=== PATIENT | male | born 1945 | race African-American/Black ===

== ENCOUNTER 2019-11-11 16:48 | Emergency (ER) | payer OTHER ==
[~2019-11-11] VITALS: Ht 180.3 cm; Wt 99.8 kg
[2019-11-11] MEDS ORDERED: TAMSULOSIN HCL0.4 MG PO (17:21)
[2019-11-11] MEDS ORDERED: HYDROXYZINE HCL50 MG PO (17:22)
[2019-11-11] MEDS ORDERED: OMEPRAZOLE 20 M20 M1 PO (17:22)
[2019-11-11] MEDS ORDERED: HYDROCHLOROTHIA25 M2 PO (17:22)
[2019-11-11] MEDS ORDERED: TRAMADOL 50 MG50 MG PO (17:22)
[2019-11-11 17:55] LABS: URINE BILIRUBIN NEGATIVE (Negative); URINE BLOOD 3+ (Negative); URINE CLARITY CLEAR; URINE COLOR YELLOW; URINE GLUCOSE-RANDOM* NEGATIVE (Negative); URINE KETONES NEGATIVE (Negative); URINE NITRITE-REFLEX NEGATIVE (Negative); URINE PROTEIN (DIPSTICK) TRACE (Negative); URINE UROBILINOGEN 0.2 E.U./dl (0.2-1.0)
[2019-11-11 18:00] LABS: URINE LEUKOCYTES-REFLEX 3+ (Negative)
[2019-11-11 18:08] LABS: CASTS None Seen /LPF (None Seen); CRYSTALS None Seen /LPF (None Seen); SQUAMOUS 0-3 Few /LPF (0-3); URINE RBC 3-10 Few /HPF (0-2); URINE WBC-REFLEX >25 Many /HPF (0-5)
[2019-11-11 18:09] LABS: BACTERIA-REFLEX 1-9 Few /HPF (None Seen)
[2019-11-11] MEDS ORDERED: BACTRIM DS TAB1 EACH PO (18:30)
[2019-11-11] MEDS ORDERED: NORCO 5-325 TA1 EAC2 PO (18:30)
[2019-11-11 18:55] VITALS: BP 123/72
== END 2019-11-11 19:03 | disposition home or self-care (01) ==
LOC: ER 16:48
PROVIDERS: Emergency Medicine
DX: N39.0 Urinary tract infection, site not specified (principal); R32 Unspecified urinary incontinence; R10.2 Pelvic and perineal pain; I10 Essential (primary) hypertension; J45.909 Unspecified asthma, uncomplicated; E11.9 Type 2 diabetes mellitus without complications; Z85.46 Personal history of malignant neoplasm of prostate; Z88.1 Allergy status to other antibiotic agents; Z88.0 Allergy status to penicillin; Z79.899 Other long term (current) drug therapy

== ENCOUNTER 2019-11-13 21:16 | Inpatient (IN) | payer OTHER ==
[~2019-11-13] VITALS: Ht 180.3 cm; Wt 98.9 kg
[~2019-11-13 21:16] MED LIST: BACTRIM DS TAB1 EACH PO; HYDROCHLOROTHIA25 M2 PO; HYDROXYZINE HCL50 MG PO; NORCO 5-325 TA1 EAC2 PO; OMEPRAZOLE 20 M20 M1 PO; TAMSULOSIN HCL0.4 MG PO; TRAMADOL 50 MG50 MG PO
[2019-11-13 21:21] VITALS: BP 129/62
[2019-11-13 22:11] LABS: ABSOLUTE NEUTROPHILS 11.4 thou/uL (1.4-8.2); BASOPHILS 0.6 % (0.0-2.0); EOSINOPHILS 2.3 % (0.0-3.0); HEMATOCRIT 32.3 % (42.0-52.0); LYMPHOCYTES 8.4 % (24.0-44.0); MCH 24.7 pg (26.0-34.0); MCV 72.5 fL (80.0-100.0); MONOCYTES 10.2 % (1.0-8.0); PLATELET COUNT 312 thou/uL (150-400); POLYS 78.5 % (36.0-66.0); RBC 4.46 mil/uL (4.50-6.00); RDW 19.2 % (10.5-14.5); WBC 14.5 thou/uL (4.0-11.0)
[2019-11-13 23:21] LABS: URINE BILIRUBIN NEGATIVE (Negative); URINE BLOOD 3+ (Negative); URINE CLARITY SL CLOUDY; URINE COLOR YELLOW; URINE GLUCOSE-RANDOM* NEGATIVE (Negative); URINE KETONES NEGATIVE (Negative); URINE LEUKOCYTES-REFLEX 3+ (Negative); URINE NITRITE-REFLEX NEGATIVE (Negative); URINE PROTEIN (DIPSTICK) 1+ (Negative); URINE SPECIFIC GRAVITY 1.015 (1.005-1.035); URINE UROBILINOGEN 0.2 E.U./dl (0.2-1.0)
[2019-11-13 23:23] LABS: ALBUMIN 2.6 g/dL (3.4-5.0); CALCIUM 8.9 mg/dL (8.5-10.1); CREATININE 1.4 mg/dL (0.7-1.3); POTASSIUM 5.7 mmol/L (3.5-5.1); TOTAL BILIRUBIN 0.5 mg/dL (0.2-1.0); TOTAL PROTEIN 7.8 g/dL (6.4-8.2)
[2019-11-13 23:35] LABS: CASTS None Seen /LPF (None Seen); CRYSTALS None Seen /LPF (None Seen); MUCUS 0-3 Light strn/LPF (None Seen); SQUAMOUS None Seen /LPF (0-3); URINE RBC >20 Many /HPF (0-2); URINE WBC-REFLEX >25 Many /HPF (0-5)
[2019-11-14] MEDS ORDERED: NORVASC 2.5 MG2.5 M1 PO (01:59)
[2019-11-14] MEDS ORDERED: SENOKOT-S TABL1 EACH PO (02:00)
[2019-11-14] MEDS ORDERED: CITRATE OF MAG296 M1 PO (02:01)
[2019-11-14] MEDS ORDERED: FLONASE 0.05%50 MCG NASAL (02:01)
[2019-11-14] MEDS ORDERED: FLUTICASONE-SA1 EAC4 IH (02:03)
[2019-11-14] MEDS ORDERED: METFORMIN HCL500 M3 PO (02:04)
[2019-11-14] MEDS ORDERED: BENAZEPRIL HCL20 MG PO (02:05)
[2019-11-14] MEDS ORDERED: HYDROCHLOROTHIA25 M2 PO (02:05)
[2019-11-14] MEDS ORDERED: MITIGARE0.6 MG PO (02:06)
[2019-11-14 02:08] VITALS: BP 144/83
[2019-11-14 02:15] VITALS: BP 166/83
[2019-11-14 03:44] VITALS: BP 148/82
--- NOTE | 2019-11-14 04:22 | NUR ---
PT TO UNIT AROUND 0345. A&OX4. ORIENTED PT TO UNIT, STAFF AND USE OF CALLIGHT. PT REPORTS PAIN 5/10 IN ABDOMEN, THINKS HE NEEDS TO HAVE A GOOD BOWEL MOVEMENT. FLUIDS AND ANTIBIOTICS STARTED. GAIT IS UNSTEADY WITH TRANSFERS. USING URINAL. HAS SIIFICANT DRIBBLING OF URINE. URINE IS BLOOD TINGED AND FOUL SMELLING. VSS. PT REPORTS HE HAS SLEEP APNEA BUT DOES NOT WEAR A CPAP OR BIPAP. ADMISSION COMPLETED. CURRENTLY SNORING IN BED WITH TV ON, WILL CONTINUE TO MONITOR.
[2019-11-14 05:11] LABS: HEMATOCRIT 34.6 % (42.0-52.0); MCH 23.6 pg (26.0-34.0); MCHC 31.6 g/dL (28.0-37.0); MCV 74.8 fL (80.0-100.0); RBC 4.63 mil/uL (4.50-6.00); RDW 19.3 % (10.5-14.5); WBC 12.2 thou/uL (4.0-11.0)
[2019-11-14 05:18] LABS: CALCIUM 9.2 mg/dL (8.5-10.1); CREATININE 1.3 mg/dL (0.7-1.3); POTASSIUM 5.4 mmol/L (3.5-5.1)
[2019-11-14 07:20] VITALS: BP 123/67
--- NOTE | 2019-11-14 09:15 | NUR ---
ASSESSMENT: CM REVIEWED CHART AND SPOKE WITH PATIENT. PT IS ALERT AND ORIENTED X4. PT WAS ADMITTED FOR COMPLICATED UTI. PT STATES HE LIVES AT HOME WITH HIS IN A HOUSE. PT REPORTS THEY HAVE ABOUT 2 STEPS TO ENTER AND HE HAS A STAIR LIFT INSIDE. PT REPORTS THAT HE USES A FWW FOR AMBULATION. PT REPORTS THAT HE IS CURRENTLY IN SERVICES WITH [facility]. CM CONTACTED [facility] AND CONFIRMED THIS AND FAXED REFERRAL TO THEM AT [phone]. PT IS HOPEFUL HE WILL BE ABLE TO RETURN HOME WITH HH AT DISCHARGE. CM ASKED IF PATIENT HAD BEEN TO A SNF BEFORE AND PT STATES HE WAS UNSURE BUT THOUGHT [facility] HAD ONE HE HAD BEEN TO IN THE PAST. CM WILL CONTINUE TO FOLLOW TO ASSIST NEEDED.
--- NOTE | 2019-11-14 10:59 | NUR ---
Assumed care of pt at 0700. Pt a&ox4. States he feels constipated. Mag citrate and supposity ordered. Pt trying to have a BM. Urinary frequency. IVF and antibiotics infusing. Call light within reach. Fall precautions in place. Will continue to monitor.
--- NOTE | 2019-11-14 16:06 | EKG ---
[facility] [place] [address] ELECTROCARDIOGRAM REPORT Name: TANISHA WILKERSON Room #: 442- ADM IN M.R.#: [id number] Admission: 11/14/19 Attend Phys: Antoine Hwang Discharge: Date of : 49 Report #: [id number] THIS REPORT FOR: cc: Minor Arriola MD, [place] S. MD Couchonnal, Luis F. 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1945 Requested By: David Woods Order Number: [id number] : Jovany Singh Measurements Intervals [place] Rate: 95 P: 49 [place]: 137 QRS: -66 QRSD: 136 T: 43 QT: 372 QTc: 468 Interpretive Statements Sinus rhythm RBBB and LAFB Minimal ST elevation, anterolateral leads Compared to ECG 01/02/1992 09:07:00 Left anterior fascicular block now present Right bundle-branch block now present ST (T wave) deviation now present T-wave abnormality no longer present Electronically Signed On 11-14-2019 16:05:59 CDT by Jovany Singh [email or web address] <ELECTRONICALLY SIGNED> By: Jovany Singh MD 11/14/19 1605 2245 Jovany Singh MD /EPI
[2019-11-14 17:19] VITALS: BP 127/68
[2019-11-14 19:14] VITALS: BP 138/64
--- NOTE | 2019-11-15 03:36 | NUR ---
ASSESSED AT START OF SHIFT. PT A&O4 C/O PAIN 7/1O MANAGED WITH PO TRAMADOL. IV INTACT AND FLUIDS INFUSING. PT UP WITH ASSISTX1 TO THE BSC HAD 2 BM THIS SHIFT. EVENING MEDS GIVEN AND PT WILEY IT WELL. FALL PREC IN PLACE, CALL LIGHT IN REACH WILL CONT TO MONITOR.
[2019-11-15 03:52] VITALS: BP 143/80
[2019-11-15 06:27] LABS: ALBUMIN 2.6 g/dL (3.4-5.0); CALCIUM 8.8 mg/dL (8.5-10.1); CREATININE 1.2 mg/dL (0.7-1.3); MAGNESIUM 2.1 mg/dL (1.8-2.4); PHOSPHORUS 3.4 mg/dL (2.5-4.9); POTASSIUM 5.5 mmol/L (3.5-5.1)
[2019-11-15 08:03] VITALS: BP 133/70
--- NOTE | 2019-11-15 12:46 | NUR ---
ON-GOING ASSESSMENT: CM REVIEWED CHART AND SPOKE WITH ATTENDING. PT STILL ON IV VANC FOR COMPLICATED CYSTITIS. PT IS SLOWLY PROGRESSING TOWARDS DISCHARGE GOALS. CM SPOKE WITH ATTENDING WHO REPORTS PATIENT MAY POSSIBLY DISCHARGE TOMORROW BACK HOME WITH 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 CM CONTACTED [facility] TO NOTIFY THEM OF POSSIBLE DISCHARGE TOMORROW (THEY CAN ACCEPT). CM WILL CONTINUE TO FOLLOW TO ASSIST NEEDED.
[2019-11-15 15:39] VITALS: BP 148/72
--- NOTE | 2019-11-15 17:28 | NUR ---
PT IS AOX4, VSS, NO C/O PAIN AT THIS TIME. PT WORKED WITH PHYSICAL THERAPY TODAY. APPETITE IS ADEQUATE. PT IS DRIBBLING URINE, REPORTS HE HAS TO URINATE ALL THE TIME. PT HAS ON BRIEF. IV PATENT IN RIGHT HAND/SL. PT CALLS APPROPRIATELY. WILL CONTINUE TO MONITOR.
[2019-11-15 19:17] VITALS: BP 138/72
--- NOTE | 2019-11-16 01:10 | NUR ---
ASSESSED AT START OF SHIFT 0. PT C/O OF PAIN IN GROIN AND FREQUENT URINATION. TRAMADOL GIVEN AND PT HAS ON BRIEFS FOR DRIBBLING. IV INTACT AND FLUIDS INFUSING. FALL PREC IN PLACE, CALL LIGHT IN REACH WILL CONT TO MONITOR.
[2019-11-16 04:08] VITALS: BP 152/88
[2019-11-16 05:44] LABS: ALBUMIN 2.7 g/dL (3.4-5.0); CALCIUM 9.2 mg/dL (8.5-10.1); CREATININE 1.2 mg/dL (0.7-1.3); PHOSPHORUS 3.5 mg/dL (2.5-4.9); POTASSIUM 4.8 mmol/L (3.5-5.1)
[2019-11-16 07:58] VITALS: BP 157/95
[2019-11-16] MEDS ORDERED: CEFUROXIME500 MG PO (09:54)
[2019-11-16 10:15] VITALS: BP 152/88
--- NOTE | 2019-11-16 10:51 | NUR ---
PT DISCHARGING TODAY TO HOME WITH [facility] FAXED DC ORDERS/SUMMARY RECEIVED CONFIRMATION AND THEY WILL CALL PT TO SET UP VISITS.
--- NOTE | 2019-11-16 12:21 | NUR ---
PT IS AOX4, VSS, PAIN CONTROLLED WITH ORAL ANALGESIC. PT RECEIVED DC INSTRUCTIONS, VERBALIZED UNDERSTANDING. PT CALLS APPROPRIATELY, IV DC'D. TOOK HOME WITH HOME HEALTH.
== END 2019-11-16 13:22 | disposition home health service (06) | DRG 871 ==
LOC: ER 21:16 → 4S 11-14 01:51 → EROBS 11-14 01:51 → 4S 11-14 02:35
PROVIDERS: Emergency Medicine; Nurse Practitioner Family; ADMIT Hospitalist; ATTEND Hospitalist
DX: A41.9 Sepsis, unspecified organism (principal); E43 Unspecified severe protein-calorie malnutrition; N17.9 Acute kidney failure, unspecified; N30.80 Other cystitis without hematuria; I10 Essential (primary) hypertension; K59.00 Constipation, unspecified; R33.9 Retention of urine, unspecified; G47.00 Insomnia, unspecified; K21.9 Gastro-esophageal reflux disease without esophagitis; J45.909 Unspecified asthma, uncomplicated; E11.9 Type 2 diabetes mellitus without complications; Z85.46 Personal history of malignant neoplasm of prostate; Z88.1 Allergy status to other antibiotic agents; Z88.0 Allergy status to penicillin; Z88.8 Allergy status to other drugs, medicaments and biological substances; Z79.899 Other long term (current) drug therapy; Z68.30 Body mass index [BMI] 30.0-30.9, adult
CPT/HCPCS: 10195

== ENCOUNTER 2020-01-25 17:46 | Emergency (ER) | payer OTHER ==
[~2020-01-25] VITALS: Ht 182.9 cm; Wt 99.8 kg
[~2020-01-25 17:46] MED LIST changes: +BENAZEPRIL HCL20 MG PO; +CEFUROXIME500 MG PO; +CITRATE OF MAG296 M1 PO; +FLONASE 0.05%50 MCG NASAL; +FLUTICASONE-SA1 EAC4 IH; +METFORMIN HCL500 M3 PO; +MITIGARE0.6 MG PO; +NORVASC 2.5 MG2.5 M1 PO; +SENOKOT-S TABL1 EACH PO
[2020-01-25 19:00] LABS: ABSOLUTE NEUTROPHILS 8.2 thou/uL (1.4-8.2); BASOPHILS 0.5 % (0.0-2.0); EOSINOPHILS 0.7 % (0.0-3.0); HEMATOCRIT 28.1 % (42.0-52.0); LYMPHOCYTES 9.2 % (24.0-44.0); MCH 22.2 pg (26.0-34.0); MCHC 31.9 g/dL (28.0-37.0); MCV 69.6 fL (80.0-100.0); MONOCYTES 7.5 % (1.0-8.0); PLATELET COUNT 422 thou/uL (150-400); POLYS 82.1 % (36.0-66.0); RBC 4.04 mil/uL (4.50-6.00); RDW 19.7 % (10.5-14.5)
[2020-01-25 19:10] LABS: ANION GAP 11 mmol/L (7-16); BUN 21 mg/dL (7-18); CALCIUM 9.4 mg/dL (8.5-10.1); CHLORIDE 97 mmol/L (98-107); CO2 25 mmol/L (21-32); CREATININE 1.4 mg/dL (0.7-1.3); GLUCOSE 106 mg/dL (74-106); POTASSIUM 4.5 mmol/L (3.5-5.1); SODIUM 133 mmol/L (136-145)
[2020-01-25 19:19] LABS: ALBUMIN 2.9 g/dL (3.4-5.0); LIPASE 78 U/L (73-393); SGOT 49 U/L (15-37); SGPT 55 U/L (30-65); TOTAL BILIRUBIN 0.3 mg/dL (0.2-1.0); TOTAL PROTEIN 8.2 g/dL (6.4-8.2); TROPONIN-I <0.06 ng/mL (<0.06)
[2020-01-25 19:20] LABS: ANISOCYTOSIS 1+; HYPOCHROMASIA 1+; MICROCYTES 1+
[2020-01-25 21:28] LABS: URINE BILIRUBIN NEGATIVE (Negative); URINE BLOOD 2+ (Negative); URINE CLARITY SL CLOUDY; URINE COLOR YELLOW; URINE GLUCOSE-RANDOM* NEGATIVE (Negative); URINE KETONES NEGATIVE (Negative); URINE NITRITE-REFLEX NEGATIVE (Negative); URINE PROTEIN (DIPSTICK) 1+ (Negative); URINE UROBILINOGEN 0.2 E.U./dl (0.2-1.0)
[2020-01-25 21:42] VITALS: BP 138/84
[2020-01-25 21:49] LABS: URINE LEUKOCYTES-REFLEX 3+ (Negative)
[2020-01-25 21:51] LABS: SQUAMOUS 0-3 Few /LPF (0-3); URINE WBC-REFLEX >25 Many /HPF (0-5); WBC CLUMPS Packed (None Seen)
[2020-01-25 21:52] LABS: BACTERIA-REFLEX 1-9 Few /HPF (None Seen); CASTS None Seen /LPF (None Seen); CRYSTALS None Seen /LPF (None Seen); MUCUS 0-3 Light strn/LPF (None Seen)
--- NOTE | 2020-01-26 07:41 | EKG ---
[facility] [place] [address] [place] [address] ELECTROCARDIOGRAM REPORT Name: TANISHA WILKERSON [id number] Admission: 01/25/20 Attend Phys: Discharge: 01/25/20 Date of : 49 Report #: [id number] THIS REPORT FOR: cc: Minor Arriola MD, [place] S. 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[facility] : 1945 Requested By: Madonna Amaya Order Number: [id number] MD: Jose Mccollum Measurements Intervals [place] Rate: 115 P: 82 [place]: 149 QRS: -61 QRSD: 139 T: 69 QT: 341 QTc: 472 Interpretive Statements Sinus tachycardia RBBB and LAFB Compared to ECG 11/13/2019 22:45:23 Sinus rhythm no longer present ST (T wave) deviation still present Electronically Signed On 01-26-2020 7:41:20 CDT by Jose Mccollum [email or web address] <ELECTRONICALLY SIGNED> By: Jose Mccollum MD, FACC 01/26/20 0741 09 09 Jose Mccollum MD, FAC /EPI
== END 2020-01-25 21:43 | disposition home or self-care (01) ==
LOC: ER 17:46
PROVIDERS: Physician Assistant
DX: K56.41 Fecal impaction (principal); D64.9 Anemia, unspecified; I10 Essential (primary) hypertension; J45.909 Unspecified asthma, uncomplicated; E11.9 Type 2 diabetes mellitus without complications; Z79.899 Other long term (current) drug therapy; Z88.0 Allergy status to penicillin; Z88.1 Allergy status to other antibiotic agents; Z88.8 Allergy status to other drugs, medicaments and biological substances